=== PATIENT | female | born 1930 | race African-American/Black ===

== ENCOUNTER 2017-02-15 12:21 | Outpatient (CLI) | payer MEDICARE, OTHER ==
[2017-02-15 12:58] LABS: Glucose 102 mg/dL (83-110)
== END 2017-02-15 12:22 ==
LOC: NAVSJIPCSP 12:21
PROVIDERS: ATTEND Internal Medicine
DX: I11.9 Hypertensive heart disease without heart failure (principal); R73.9 Hyperglycemia, unspecified
CPT/HCPCS: 82947